=== PATIENT | male | born 1985 | race Caucasian/White ===

== ENCOUNTER 2018-12-10 13:34 | Emergency (ER) | payer SELFPAY ==
[~2018-12-10] VITALS: Ht 172.7 cm; Wt 74.8 kg
--- NOTE | 2018-12-10 14:48 | NUR ---
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
[2018-12-10] MEDS ORDERED: ONDA4ODT MM (15:03)
== END 2018-12-10 15:25 | disposition home or self-care (01) ==
LOC: ER 13:34
DX: S00.03XA Contusion of scalp, initial encounter (principal); F41.9 Anxiety disorder, unspecified; F32.9 Major depressive disorder, single episode, unspecified; W22.8XXA Striking against or struck by other objects, initial encounter
CPT/HCPCS: 70450; 99284-25

== ENCOUNTER 2020-11-14 10:22 | Emergency (ER) | payer OTHER ==
[~2020-11-14] VITALS: Ht 175.3 cm; Wt 79.4 kg
[~2020-11-14 10:22] MED LIST: ONDA4ODT MM
[2020-11-14] MEDS ORDERED: Cymbalta20 MG PO (10:32)
== END 2020-11-14 10:59 | disposition home or self-care (01) ==
LOC: ER 10:22
DX: M54.5 Low back pain (principal); Z87.891 Personal history of nicotine dependence; Z79.899 Other long term (current) drug therapy
CPT/HCPCS: 96372; 99283; J1885

== ENCOUNTER 2021-01-09 17:41 | Emergency (ER) | payer OTHER ==
[~2021-01-09] VITALS: Ht 175.3 cm; Wt 81.7 kg
[~2021-01-09 17:41] MED LIST changes: +Cymbalta20 MG PO
== END 2021-01-09 19:15 | disposition home or self-care (01) ==
LOC: ER 17:41
DX: M54.5 Low back pain (principal); G89.29 Other chronic pain; Z79.899 Other long term (current) drug therapy; Z87.891 Personal history of nicotine dependence
CPT/HCPCS: 96372; 99283-25; J1885

== ENCOUNTER 2021-01-29 18:07 | Emergency (ER) | payer OTHER ==
[~2021-01-29] VITALS: Ht 175.3 cm; Wt 81.7 kg
[2021-01-29] MEDS ORDERED: Neurontin 100100 MG PO (18:24)
== END 2021-01-29 18:47 | disposition home or self-care (01) ==
LOC: ER 18:07
DX: M54.5 Low back pain (principal); G89.29 Other chronic pain; Z87.891 Personal history of nicotine dependence; Z79.899 Other long term (current) drug therapy
CPT/HCPCS: 96372; 99283-25; J1100; J1885

== ENCOUNTER 2021-12-17 17:30 | Emergency (ER) | payer OTHER ==
[~2021-12-17] VITALS: Ht 175.3 cm; Wt 83.9 kg
[~2021-12-17 17:30] MED LIST changes: +Neurontin 100100 MG PO
== END 2021-12-17 19:05 | disposition home or self-care (01) ==
LOC: ER 17:30
DX: M54.50 Low back pain, unspecified (principal); G89.29 Other chronic pain
CPT/HCPCS: 96372; 99282-25; J1885

== ENCOUNTER 2022-01-07 16:58 | Emergency (ER) | payer OTHER ==
[~2022-01-07] VITALS: Ht 175.3 cm; Wt 83.9 kg
[2022-01-07] MEDS ORDERED: GABA300 PO (18:10)
== END 2022-01-07 18:21 | disposition home or self-care (01) ==
LOC: ER 16:58
DX: S39.012A Strain of muscle, fascia and tendon of lower back, initial encounter (principal); X58.XXXA Exposure to other specified factors, initial encounter; G89.29 Other chronic pain; Z79.899 Other long term (current) drug therapy; Z87.891 Personal history of nicotine dependence
CPT/HCPCS: A9270; J1885

== ENCOUNTER 2023-06-19 08:51 | Day surgery (SDC) | payer OTHER ==
[~2023-06-19] VITALS: Ht 175.3 cm; Wt 79.6 kg
[~2023-06-19 08:51] MED LIST changes: +GABA300 PO
[2023-06-19] MEDS ORDERED: AMPDEX15CR PO (09:29)
[2023-06-19] MEDS ORDERED: CLON.5 (09:30)
--- NOTE | 2023-06-19 10:25 | NUR ---
06/19/23 1025 Christal Mosley 2 SPRAYS TO EACH NOSTRIL OF AFRIN GIVEN TO PT PRIOR TO BEING TRANSFERRED TO OR. PT CARMELITA WELL
--- NOTE | 2023-06-19 11:14 | NUR ---
06/19/23 1114 Diallo Sherman SPLINTS X2 LOT: [id number] EXP: 09-09-30
[2023-06-19 12:46] VITALS: BP 122/93
--- NOTE | 2023-06-19 13:31 | NUR ---
06/19/23 1331 Michelet Rand PT DISORIENTED UPON ARRIVAL IN SDU, [facility] PT THREATENING STAFF. FAMILY AND HOTEL CONCIERGE AT BEDSIDE.
== END 2023-06-19 14:55 | disposition home or self-care (01) ==
LOC: ORSCSDS 08:51
PROVIDERS: Otolaryngology
PROC: 09BM0ZZ Excision of Nasal Septum, Open Approach (ICD-10-PCS; principal; 2023-06-19 10:00)
PROC: 09TL0ZZ Resection of Nasal Turbinate, Open Approach (ICD-10-PCS; principal; 2023-06-19 10:00)
DX: J34.2 Deviated nasal septum (principal); J34.3 Hypertrophy of nasal turbinates; J34.89 Other specified disorders of nose and nasal sinuses; J31.0 Chronic rhinitis; F43.10 Post-traumatic stress disorder, unspecified; Z79.899 Other long term (current) drug therapy
CPT/HCPCS: A9270; J0690; J1100; J2250; J2405; J2704; J3010; J7120

== ENCOUNTER 2024-08-13 13:03 | Emergency (ER) | payer OTHER ==
[~2024-08-13] VITALS: Ht 175.3 cm; Wt 79.8 kg
[~2024-08-13 13:03] MED LIST changes: +AMPDEX15CR PO; +CLON.5; +Naprosyn500 MG PO
[2024-08-13 13:32] VITALS: BP 143/90
[2024-08-13 14:22] LABS: BASOPHILS ABSOLUTE AUTO 0.04 K/mm3 (0.00-0.23); BASOPHILS PERCENT AUTO 1 % (0-2); EOSINOPHILS ABSOLUTE AUTO 0.07 K/mm3 (0.00-0.68); EOSINOPHILS PERCENT AUTO 1 % (0-6); Hematocrit 41.4 % (37.0-53.0); IMMATURE GRAN ABSOLUTE AUTO 0.02 K/mm3 (0.00-0.10); IMMATURE GRAN PERCENT AUTO 0 % (0-1); LYMPHOCYTES ABSOLUTE AUTO 1.69 K/mm3 (0.84-5.20); LYMPHOCYTES PERCENT AUTO 23 % (21-46); MONOCYTES PERCENT AUTO 5 % (4-13); Mean Corpuscular HGB 29.8 pg (26.0-34.0); Mean Corpuscular HGB Conc 36.2 g/dL (31.5-36.5); Mean Corpuscular Volume 82 fL (80-100); Mean Platelet Volume 8.9 fL (9.1-12.4); NEUTROPHILS ABSOLUTE AUTO 5.24 K/mm3 (1.96-9.15); NEUTROPHILS PERCENT AUTO 70 % (41-73); Platelet Count 219 K/mm3 (150-400); RDW Coefficient Variation 12.1 % (11.7-14.2); RDW Standard Deviation 35.9 fL (35.1-46.3); Red Blood Cell Count 5.03 M/mm3 (4.30-5.90); White Blood Cell Count 7.46 K/mm3 (4.00-11.30)
[2024-08-13 14:48] LABS: Albumin, Blood 4.1 g/dL (3.4-5.0); Albumin/Globulin Ratio 1.4 (0.8-1.8); Bilirubin, Total 0.5 mg/dL (0.1-1.0); Bun/Creatinine Ratio 14.6 (12.0-20.0); Calcium, Blood 9.5 mg/dL (8.5-10.1); Creatinine, Blood 0.89 mg/dL (0.60-1.20); Total Protein, Blood 7.1 g/dL (6.4-8.2)
== END 2024-08-13 17:09 | disposition home or self-care (01) ==
LOC: ER 13:03
PROVIDERS: Emergency Medicine
DX: R51.9 Headache, unspecified (principal); R20.0 Anesthesia of skin; R47.89 Other speech disturbances; R29.818 Other symptoms and signs involving the nervous system; Z79.899 Other long term (current) drug therapy; Z87.891 Personal history of nicotine dependence
CPT/HCPCS: 70450; 80053; 85025; 99284-25